=== PATIENT | female | born 2000 | race Caucasian/White ===

== ENCOUNTER 2024-06-11 10:45 | Emergency (ER) | payer BC, SELFPAY ==
[2024-06-11 10:56] VITALS: BP 127/88
--- NOTE | 2024-06-11 10:56 | ED.GENMED ---
ED Provider Triage
<Yulisa Carr PA-C - Last Filed: 06/11/24 11:03>
-
Patient seen by provider in Triage?: Seen in Triage
23 y/o F
fell down a flight of steps 4 days ago, hit her right ribs on the ground. She has a lot of pain and minimal bruising to her right lower anterior rib cage as well as her right upper quadrant. It is worse with deep breathing. She does have a large
bruise on her thigh but is able to walk. She struck the front of her head without any loss of consciousness. She recalls the fall. She does admit she was drinking 2 glasses of prosecco prior to the fall.
She is not on any blood thinners
A medical screening examination has been initiated by a qualified medical provider. Based on the assessment performed at this time, it has been determined that an emergent medical condition may exist and the patient has been informed that further
medical evaluation and possible additional diagnostic testing may be needed.
HPI: This is a medical evaluation conducted in person to initiate diagnostic evaluation and provide initial therapeutics. Please see further documentation by the treating clinician.
GENERAL: Alert , in no apparent distress
ENT: No visible abnormalities
LUNGS: No acute respiratory distress
Patient has some splinting on the right side and moderate tenderness to the right lower ribs as well as the right upper quadrant and the right CVA region, there is no significant bruising in this area
NEUROLOGICAL: Alert and oriented
SKIN: Skin intact. No visible changes.
MUSCULOSKELETAL: Moving extremities normally
PSYCH: Normal and appropriate interaction.
Given her tenderness we will evaluate with a CT
History of Present Illness
<Yulisa Carr PA-C - Last Filed: 06/11/24 11:03>
General
Chief Complaint: Fall
Time Seen by Provider: 06/11/24 11:04
<Scott Javier PA-C - Last Filed: 06/11/24 14:54>
General
Source: patient
Exam Limitations: none
History of Present Illness
History of Present Illness:
Patient surgical 23-year-old female presents complaining of persistent right rib pain. She fell down the steps and landed on her side. She denies neck or significant back pain. No hematuria. The pain is made worse with deep breathing. The pain
is along the lower aspect of the right ribs.
Phy Exam
<Scott Javier PA-C - Last Filed: 06/11/24 14:54>
Physical Exam
Physical Exam:
General: Well-appearing female no acute respiratory distress
HEENT: Normocephalic atraumatic
Heart: Regular rate and rhythm
Lungs: Clear no wheeze breath sounds heard throughout
Musculoskeletal exam: Patient is tender over the right lateral chest wall inferiorly. Mildly tender to the right upper quadrant as well arms and legs with good range of motion
Course
<Yulisa Carr PA-C - Last Filed: 06/11/24 11:03>
Orders/Labs/Results
Orders:
Orders
06/11/24 10:58
CT Chest/abd/pel W Iv Cont Urgent
Comment:
Reason For Exam: fall down flight steps 3 days ago, RUQ rib pain
06/11/24 10:59
Test Result ONCE
06/11/24 11:11
Complete Blood Count/With Diff Urgent
Comprehensive Metabolic Panel Urgent
HCG, Serum Qualitative Screen Urgent
PTT Urgent
Prothrombin Time Urgent
06/11/24 14:34
Lorazepam [Ativan] 1 mg IV NOW STA
Abnormal Lab Results
06/11/24
11:11
Chloride 109 H mmol/L
(98-107)
06/11/24 11:11
06/11/24 11:11
Vital Signs
Initial and Last Documented VS:
Initial Vital Signs
Temp Pulse Resp BP Pulse Ox
98.4 F 68 16 127/88 100
06/11/24 10:56 06/11/24 10:56 06/11/24 10:56 06/11/24 10:56 06/11/24 10:56
Last Documented Vital Signs
Temp Pulse Resp BP Pulse Ox
98.4 F 68 16 127/88 100
06/11/24 10:56 06/11/24 10:56 06/11/24 10:56 06/11/24 10:56 06/11/24 10:56
<Scott Javier PA-C - Last Filed: 06/11/24 14:54>
Orders/Labs/Results
Orders:
Orders
06/11/24 10:58
CT Chest/abd/pel W Iv Cont Urgent
Comment:
Reason For Exam: fall down flight steps 3 days ago, RUQ rib pain
06/11/24 10:59
Test Result ONCE
06/11/24 11:11
Complete Blood Count/With Diff Urgent
Comprehensive Metabolic Panel Urgent
HCG, Serum Qualitative Screen Urgent
PTT Urgent
Prothrombin Time Urgent
06/11/24 14:34
Lorazepam [Ativan] 1 mg IV NOW STA
Abnormal Lab Results
06/11/24
11:11
Chloride 109 H mmol/L
(98-107)
06/11/24 11:11
06/11/24 11:11
Vital Signs
Initial and Last Documented VS:
Initial Vital Signs
Temp Pulse Resp BP Pulse Ox
98.4 F 68 16 127/88 100
06/11/24 10:56 06/11/24 10:56 06/11/24 10:56 06/11/24 10:56 06/11/24 10:56
Last Documented Vital Signs
Temp Pulse Resp BP Pulse Ox
98.4 F 68 16 127/88 100
06/11/24 10:56 06/11/24 10:56 06/11/24 10:56 06/11/24 10:56 06/11/24 10:56
<Scott Javier PA-C - Last Filed: 06/11/24 14:54>
MDM/Problems Addressed
Differential Diagnosis Includes:
Fall with right rib and upper abdominal pain. Will evaluate for rib fracture versus pneumothorax versus liver injury or kidney injury. CT of the abdomen chest pelvis pending. Labs pending.
<Scott Javier PA-C - Last Filed: 06/11/24 14:54>
*Critical Care Note
Total Time (30-74mins, 75-104mins- exclusive of procedures): Not Applicable
<Scott Javier PA-C - Last Filed: 06/11/24 14:54>
Update Note
Update Note:
CT chest abdomen pelvis with IV contrast was reviewed and is negative for acute traumatic injury. Suspect contusion to the chest wall. Reassured patient. Recommend Tylenol or ibuprofen. Stable for discharge
ED Attending Note
<Yulisa Carr PA-C - Last Filed: 06/11/24 11:03>
-
Portions of this chart may have been created with voice recognition software.� Occasional wrong word or��sound alike� substitutions may have occurred due to the inherent limitations of voice recognition software.
Discharge Plan
Departure
Patient Disposition: Home (Routine Discharge)
Date of Disposition: 06/11/24
Time of Disposition: 14:53
Patient with high blood pressure during this ER visit?: No
Discharge Problem:
Contusion
Instructions: Contusion (DC)
Prescriptions:
No Action
albuterol sulfate 1 PUFF HFA aerosol inhaler
2 puff inhalation PRN PRN (Reason: sob)
Singulair:
10 mg PO DAILY
Referrals:
Andrei Petersen MD [Family Provider] -
Activity Restrictions/Additional Instructions:
Rest. Use ibuprofen or Tylenol for pain. Return if worse otherwise follow-up with your family doctor
Interventions
Interventions:
*Risk Screen - Suicide Last Done: 06/11/24 10:56
*General Assessment Last Done: 06/11/24 10:56
*Neglect/Abuse Screening Last Done: 06/11/24 10:56
ED- Fall Risk Assessment Last Done: 06/11/24 11:14
*ED COVID-19 Vaccine History Last Done: 06/11/24 11:05
ED-Musculoskeletal Assessment Last Done: 06/11/24 11:12
ED- Neurological Assessment Last Done: 06/11/24 11:12
ED-Skin Assessment Last Done: 06/11/24 11:12
Discharge Date and Time
Print Language: ROMANIAN
[2024-06-11 11:05] VITALS: BMI 24.6
[2024-06-11 11:34] LABS: % Basophils 0.9 % (0-2); % Eosinophils 1.9 % (0-6); % Immature Granulocytes 0.1 % (0-0.5); % Lymphocytes 21.2 % (20.5-51.1); % Monocytes 5.7 % (1.7-9.3); % Neutrophils 70.2 % (42.2-75.2); Absolute Basophils 0.1 10^3/uL (0-0.2); Absolute Eosinophils 0.2 10^3/uL (0-0.7); Absolute Lymphocytes 1.6 10^3/uL (1.2-3.4); Absolute Monocytes 0.4 10^3/uL (0.1-0.6); Absolute Neutrophils 5.4 10^3/uL (1.4-6.5); Hematocrit 42.7 % (37.0-47.0); Hemoglobin 14.3 g/dL (12.0-16.0); Mean Corp Hgb Conc. 33.5 g/dL (33.0-37.0); Mean Corpuscular Hgb 28.9 pg (27.0-31.0); Mean Corpuscular Volume 86.3 fL (81.0-99.0); Mean Platelet Volume 9.4 fL (7.4-10.4); Nucleated Red Blood Cells % 0 %; Platelet Count 297 10^3/uL (130-400); Red Blood Cell Count 4.95 10^6/uL (4.20-5.40); Red Cell Dist. Width 12.4 % (11.5-14.5); White Blood Cell Count 7.7 10^3/uL (4.8-10.8)
[2024-06-11 11:45] LABS: HCG, Serum Qualitative Screen Negative; INR 1.01; PT 13.6 Sec (11.4-14.6)
[2024-06-11 11:48] LABS: ALT (SGPT) 27 U/L (0-35); AST (SGOT) 25 U/L (14-36); Albumin 4.6 g/dl (3.5-5.0); Alkaline Phosphatase 64 U/L (38-126); Blood Urea Nitrogen 11 mg/dl (7-17); Calcium 9.9 mg/dl (8.4-10.2); Carbon Dioxide 23 mmol/L (22-30); Chloride 109 mmol/L (98-107); Estimated Creatinine Clearance > 125 ml/min; Glucose 88 mg/dl (70-99); Potassium 4.1 mmol/L (3.5-5.1); Sodium 142 mmol/L (135-145); Total Bilirubin 0.6 mg/dl (0.2-1.3); Total Protein 7.3 g/dl (6.3-8.2); eGFR > 60.00
[2024-06-11] MEDS: ATIVAN 1 MG IV (14:45)
[2024-06-11 14:59] VITALS: BP 110/82
== END 2024-06-11 15:29 | disposition home or self-care (01) ==
LOC: EMR 10:45
PROVIDERS: Physician Assistant; EMERGENCY PHYSICIAN Emergency Medicine; FAMILY PHYSICIAN Family Medicine
DX: S20.211A Contusion of right front wall of thorax, initial encounter (principal); W10.9XXA Fall (on) (from) unspecified stairs and steps, initial encounter
CPT/HCPCS: 96374; 99284; 71260; 74177; 80053; 84703; 85025; 85610; 85730; Q9967